=== PATIENT | male | born 1980 | race Caucasian/White ===

== ENCOUNTER 2024-11-19 03:55 | Emergency (ER) | payer BC ==
[2024-11-19] MEDS: Amoxicillin 500 MG Cap PO ONE (04:11)
== END 2024-11-19 04:19 | disposition home or self-care (01) ==
LOC: MW.ED 03:55
DX: L03.211 Cellulitis of face (principal); Z88.2 Allergy status to sulfonamides; Z79.899 Other long term (current) drug therapy
CPT/HCPCS: 99282; A9270; 99283